=== PATIENT | female | born 1995 | race Caucasian/White ===

== ENCOUNTER → 2020-01-01 | Outpatient (REF) | payer OTHER ==
[2020-01-02 14:34] LABS: CHLAMYDIA DNA AMPLIFICATION NEGATIVE (NEGATIVE); GC DNA AMPLIFICATION NEGATIVE (NEGATIVE)
== END ==
LOC: M WUC 10:20
PROVIDERS: ATTEND Physician Assistant
DX: R30.0 Dysuria (principal)